=== PATIENT | female | born 1950 | race American Indian/Alaskan Native ===

== ENCOUNTER 2021-12-30 07:03 | Observation (INO) | payer MEDICARE ==
[2021-12-30] MEDS ORDERED: MORPHINE 4 MG/1 ML INJ IV ONE (07:39)
[2021-12-30] MEDS ORDERED: ONDANSETRON 4 MG/2 ML INJ IV ONE (07:39)
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
[2021-12-30 08:25] LABS: Basophils # (Auto) 0.1 K/mm3 (0.0-0.1); Basophils % (Auto) 1.1 % (0.0-1.8); Eosinophils # (Auto) 0.4 K/mm3 (0.0-0.4); Eosinophils % (Auto) 4.2 % (0.0-4.3); Hematocrit 30.2 % (30.3-42.9); Hemoglobin 9.5 gm/dl (10.1-14.3); Lymphocytes # (Auto) 1.8 K/mm3 (1.2-5.4); Lymphocytes % (Auto) 18.7 % (13.4-35.0); Mean Corpuscular HGB Conc 32 % (30-34); Mean Corpuscular Volume 86 fl (79-97); Monocytes # (Auto) 1.2 K/mm3 (0.0-0.8); Monocytes % (Auto) 12.4 % (0.0-7.3); Platelet Count 510 K/mm3 (140-440); Red Blood Count 3.51 M/mm3 (3.65-5.03); Red Cell Distribution Width 19.5 % (13.2-15.2)
[2021-12-30 08:35] LABS: Chol/HDL Ratio 4.44 %
[2021-12-30 08:36] LABS: Alanine Aminotransferase 12 units/L (7-56); Albumin 3.3 g/dL (3.9-5); Blood Urea Nitrogen 82 mg/dL (7-17); Calcium 8.8 mg/dL (8.4-10.2); Hemolysis Index 6
[2021-12-30 08:40] LABS: BUN/Creatinine Ratio 8; Bilirubin,Direct < 0.2 mg/dL (0-0.2)
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
[2021-12-30] MEDS ORDERED: MORPHINE 4 MG/1 ML INJ IM ONE (10:50)
--- NOTE | 2021-12-30 11:29 | XRay Report ---
CHEST 1 VIEW INDICATION: SOB. COMPARISON: 11/24/2017 FINDINGS: Support devices: None. Heart: Mild cardiomegaly Lungs/Pleura: Mild central pulmonary venous congestion is present. There is minor discoid atelectasis adjacent to the right hilum. No evidence for pneumonia, pleural effusion or pneumothorax. Additional findings: None. IMPRESSION: Mild cardiomegaly and pulmonary venous congestion but no CHF Signer Name: Conrad Randall Jr, MD Signed: 12/30/2021 11:24 AM Workstation Name: [id number]
[2021-12-30] MEDS ORDERED: ACETAMINOPHEN 325 MG TAB PO PRN (11:31)
[2021-12-30] MEDS ORDERED: ONDANSETRON 4 MG/2 ML INJ IV PRN (11:31)
--- NOTE | 2021-12-30 12:43 | Electrocardiograph Report ---
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
--- NOTE | 2021-12-30 15:46 | Consultation ---
History of Present Illness - Reason for Consult Consult date: 12/30/21 end stage renal disease - History of Present Illness The patient is a 71 year old female with ESRD on HD every , last HD was Wednesday, presented to the emergency room for worsening abd pain. She did not get her HD yesterday. CT AP was negative for acute process. Renal consult was requested for management of HD while inpatient Past History Past Medical History: ESRD, hypertension Medications and Allergies Allergies Allergy/AdvReac Type Severity Reaction Status Date / Time lisinopril AdvReac Swelling Verified 12/30/21 07:22 Penicillins AdvReac Swelling Verified 12/30/21 07:22 Home Medications Medication Instructions Recorded Confirmed Last Taken Type Gabapentin [Neurontin] 100 mg PO Q8HR 12/30/21 12/30/21 Unknown History labetaloL [Labetalol 200mg TAB] 200 mg PO BID 12/30/21 12/30/21 Unknown History Active Meds: Active Medications Acetaminophen (Acetaminophen 325 Mg Tab) 650 mg PO Q4H PRN PRN Reason: Pain MILD(1-3)/Fever >100.5/SHOEMAKER Morphine Sulfate (Morphine 2 Mg/1 Ml Inj) 2 mg IV Q4H PRN PRN Reason: Pain, Moderate (4-6) Ondansetron HCl (Ondansetron 4 Mg/2 Ml Inj) 4 mg IV Q8H PRN PRN Reason: Nausea And Vomiting Sodium Chloride (Sodium Chloride 0.9% 10 Ml Flush Syringe) 10 ml IV BID KIMO Last Admin: 12/30/21 14:58 Dose: Not Given Sodium Chloride (Sodium Chloride 0.9% 10 Ml Flush Syringe) 10 ml IV PRN PRN PRN Reason: LINE FLUSH Review of Systems All systems: negative (abd pain) Exam - Vital Signs Vital signs: Vital Signs Resp 24 12/30/21 07:50 - General Appearance General appearance: well-developed, well-nourished, appears stated age EENT: ATNC, PERRL, mucous membranes moist Neck: Present: neck supple Respiratory: Decreased Breath Sounds Heart: regular, S1S2 Gastrointestinal: Present: normoactive bowel sounds, tenderness Integumentary: no rash, warm and dry Neurologic: no focal deficit, no asterixis, alert and oriented x3 Musculoskeletal: Present: other (trace pitting edema in BLE) Psychiatric: cooperative Results - Lab Results 12/30/21 07:46 12/30/21 07:46 Most recent lab results Calcium 8.8 mg/dL (8.4-10.2) 12/30/21 07:46 Assessment and Plan End-stage renal disease needing dialysis Acute hyperkalemia Abdominal pain Volume overload Patient is agreeable with HD during this admission HD ordered today for clearance and volume removal via L AVF will assess HD needs daily renally dose meds strict I&O daily weight
[2021-12-30] MEDS: MORPHINE 2 MG/1 ML INJ IV PRN ×2 (16:14→22:25)
[2021-12-31 00:36] LABS: Hepatitis B Surface Antigen Non-Reactive (Negative); Hepatitis C Virus Antibody Non-Reactive (NonReactive)
[2021-12-31] MEDS: MORPHINE 2 MG/1 ML INJ IV PRN ×4 (03:50→20:08)
[2021-12-31 04:27] LABS: Bacteria,Urine 1+ /HPF (Negative); Bilirubin,Urine NEG (Negative); Blood,Urine MOD (Negative); Color,Urine Yellow (Yellow); Urobilinogen,Urine < 2.0 mg/dL (<2.0)
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
[2021-12-31] MEDS ORDERED: hydrALAZINE 20 MG/1 ML INJ IV ONE (20:16)
[2021-12-31 21:40] LABS: Calcium 8.4 mg/dL (8.4-10.2)
[2022-01-01] MEDS: MORPHINE 2 MG/1 ML INJ IV PRN ×4 (05:36→17:10)
[2022-01-01 06:27] LABS: Basophils # (Auto) 0.1 K/mm3 (0.0-0.1); Eosinophils # (Auto) 0.3 K/mm3 (0.0-0.4); Eosinophils % (Auto) 3.7 % (0.0-4.3); Hematocrit 26.3 % (30.3-42.9); Hemoglobin 8.5 gm/dl (10.1-14.3); Lymphocytes # (Auto) 2.4 K/mm3 (1.2-5.4); Lymphocytes % (Auto) 25.9 % (13.4-35.0); Mean Corpuscular HGB Conc 32 % (30-34); Mean Corpuscular Volume 85 fl (79-97); Monocytes # (Auto) 1.3 K/mm3 (0.0-0.8); Monocytes % (Auto) 14.6 % (0.0-7.3); Platelet Count 440 K/mm3 (140-440); Red Blood Count 3.11 M/mm3 (3.65-5.03); Red Cell Distribution Width 19.3 % (13.2-15.2)
[2022-01-01 06:43] LABS: Calcium 8.9 mg/dL (8.4-10.2)
--- NOTE | 2022-01-01 09:20 | Progress Note ---
Assessment and Plan End-stage renal disease needing dialysis Acute hyperkalemia Abdominal pain Volume overload Plan: HD today for clearance and volume removal Fluid restriction of 1 liter per day Renally dose medications Strict I&O's daily Obtain daily weights Assess dialysis needs daily Patient reports recently moving to [facility] to live with her daughter and does not have a dialysis clinic Consulted CM for outpatient HD placement to [facility] Subjective Date of service: 01/01/22 Principal diagnosis: 12/31/2021 Interval history: No overnight events Objective - Vital Signs Vital signs: Vital Signs - 12hr 12/31/21 12/31/21 01/01/22 21:27 23:43 00:31 Temperature 97.1 F L Pulse Rate 75 73 Respiratory 18 Rate Blood Pressure 181/79 153/63 O2 Sat by Pulse 98 Oximetry 01/01/22 01/01/22 04:59 08:09 Temperature 98.1 F 97.4 F L Pulse Rate 72 73 Respiratory 19 16 Rate Blood Pressure 160/79 171/77 O2 Sat by Pulse 93 98 Oximetry - Lab 01/01/22 05:09 01/01/22 05:09 Most recent lab results Calcium 8.9 mg/dL (8.4-10.2) 01/01/22 05:09 Medications & Allergies - Medications Allergies/Adverse Reactions: Allergies lisinopril Adverse Reaction (Verified 01/01/22 07:22) Swelling/Hives Penicillins Adverse Reaction (Verified 01/01/22 07:22) Swelling/Hives Home Medications: Home Medications Medication Instructions Recorded Confirmed Last Taken Type Gabapentin [Neurontin] 100 mg PO Q8HR 12/30/21 12/30/21 Unknown History labetaloL [Labetalol 200mg TAB] 200 mg PO BID 12/30/21 12/30/21 Unknown History Active Medications: Generic Name Dose Route Start Last Admin Trade Name Freq PRN Reason Stop Dose Admin Acetaminophen 650 mg 12/30/21 11:31 Acetaminophen 325 Mg Tab PO Q4H PRN Pain MILD(1-3)/Fever >100.5/SHOEMAKER Morphine Sulfate 2 mg 12/30/21 11:31 01/01/22 05:36 Morphine 2 Mg/1 Ml Inj IV 2 mg Q4H PRN Administration Pain, Moderate (4-6) Ondansetron HCl 4 mg 12/30/21 11:31 12/30/21 22:20 Ondansetron 4 Mg/2 Ml Inj IV 4 mg Q8H PRN Administration Nausea And Vomiting Sodium Chloride 10 ml 12/30/21 12:00 12/31/21 22:01 Sodium Chloride 0.9% 10 Ml Flush Syringe IV 10 ml BID KIMO Administration Sodium Chloride 10 ml 12/30/21 11:31 Sodium Chloride 0.9% 10 Ml Flush Syringe IV PRN PRN LINE FLUSH
[2022-01-01 16:05] VITALS: BP 161/69
[2022-01-01] MEDS ORDERED: CALCIUM GLUCONATE 2,000 MG in SODIUM CHLORIDE 0.9% 100 ML IV ONE (18:44)
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
[2022-01-01] MEDS ORDERED: DOCUSATE SODIUM 100 MG CAP PO SCH (22:00)
== END 2022-01-01 20:11 | disposition home or self-care (01) ==
LOC: ED 07:03 → 4A 11:31 → INTOOBSV 11:31
PROVIDERS: ADMIT Internal Medicine; ATTEND Internal Medicine
DX: E87.5 Hyperkalemia (principal); Z20.822 Contact with and (suspected) exposure to COVID-19; E87.70 Fluid overload, unspecified; I12.0 Hypertensive chronic kidney disease with stage 5 chronic kidney disease or end stage renal disease; N18.6 End stage renal disease; R10.9 Unspecified abdominal pain; Z99.2 Dependence on renal dialysis; Z79.899 Other long term (current) drug therapy; Z98.890 Other specified postprocedural states
CPT/HCPCS: 36415; 71045; 74176; 80048; 80061; 80074; 80076; 81001; 83690; 84484; 85025; 87086; 93005; 96372; 96374; 96375; 96376; 99291; G0378; J0360; J2270; J2405; U0003

== ENCOUNTER 2022-01-09 19:13 | Emergency (ER) | payer MEDICARE ==
[2022-01-09 19:25] VITALS: BP 160/70
== END 2022-01-10 11:36 ==
LOC: ED 19:13
DX: R07.81 Pleurodynia (principal); Z53.21 Procedure and treatment not carried out due to patient leaving prior to being seen by health care provider

== ENCOUNTER 2022-01-23 10:20 | Inpatient (IN) | payer MEDICARE ==
[2022-01-23] MEDS ORDERED: MORPHINE 4 MG/1 ML INJ IV ONE (11:46)
[2022-01-23] MEDS ORDERED: ONDANSETRON 4 MG/2 ML INJ IV ONE (11:46)
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
[2022-01-23 12:40] LABS: Basophils # (Auto) 0.1 K/mm3 (0.0-0.1); Basophils % (Auto) 1.6 % (0.0-1.8); Eosinophils # (Auto) 0.3 K/mm3 (0.0-0.4); Eosinophils % (Auto) 4.3 % (0.0-4.3); Hematocrit 30.5 % (30.3-42.9); Hemoglobin 9.2 gm/dl (10.1-14.3); Lymphocytes # (Auto) 2.1 K/mm3 (1.2-5.4); Lymphocytes % (Auto) 25.3 % (13.4-35.0); Mean Corpuscular HGB Conc 30 % (30-34); Mean Corpuscular Volume 89 fl (79-97); Monocytes # (Auto) 1.1 K/mm3 (0.0-0.8); Monocytes % (Auto) 13.9 % (0.0-7.3); Platelet Count 545 K/mm3 (140-440); Red Blood Count 3.44 M/mm3 (3.65-5.03); Red Cell Distribution Width 19.4 % (13.2-15.2)
[2022-01-23 13:18] LABS: Albumin 3.5 g/dL (3.9-5); Blood Urea Nitrogen 61 mg/dL (7-17); Calcium 9.1 mg/dL (8.4-10.2); Hemolysis Index 0
[2022-01-23 13:23] LABS: BUN/Creatinine Ratio 6
[2022-01-23 13:33] LABS: Alanine Aminotransferase < 5 units/L (7-56)
[2022-01-23] MEDS ORDERED: SODIUM POLYSTYRENE 15 GM/60 ML ORAL LIQD PO ONE (13:51)
[2022-01-23] MEDS ORDERED: DEXTROSE 50% IN WATER (25GM) 50 ML SYRINGE IV ONE (13:52)
[2022-01-23] MEDS ORDERED: INSULIN REGULAR, HUMAN 100 UNITS/1 ML IV ONE (13:52)
[2022-01-23] MEDS ORDERED: CALCIUM GLUCONATE 1,000 MG in SODIUM CHLORIDE 0.9% 100 ML IV ONE (13:53)
[2022-01-23] MEDS ORDERED: MORPHINE 2 MG/1 ML INJ IV ONE (17:21)
--- NOTE | 2022-01-23 17:28 | History and Physical Report ---
History of Present Illness Chief complaint: I am short of breath and I need dialysis History of present illness: 71 YO Female with Obesity, ESRD on HD(M,WF), GERD, OA, Chronic Pain Syndrome presents to ED for evaluation. Patient reports "it is hard to breathe and I need dialysis". Patient states that she has missed her previous 2 dialysis sessions. EMS was notified and the patient was found to be in distress and subsequently transported to [facility] for further care and evaluation of the aforementioned symptoms. The patient was seen and evaluated in the emergency department. All lab and imaging studies reviewed. Patient found to have a blood pressure of 205/101 mmHg which is consistent with hypertensive emergency, End-stage renal disease in need of urgent dialysis, fluid overload, hyperkalemia without EKG changes. Patient admitted to medical floor and initiated on IV antihypertensive therapy. Nephrology team consulted in ED for urgent dialysis. Patient denies fever, chills, chest pain, palpitation, productive cough, skin rash and recent contact, or known exposure to COVID-19. Prior admission on reviewed. All medication listed at time of admission has been reconciled. Advanced care planning conducted in ED. Past History Past Medical History: ESRD, GERD, hypertension Past Surgical History: , Other (Dialysis access) Social history: . denies: smoking, alcohol abuse, prescription drug abuse Family history: diabetes, hypertension Medications and Allergies Allergies Allergy/AdvReac Type Severity Reaction Status Date / Time lisinopril AdvReac Swelling/Hi Verified 01/23/22 10:29 ves Penicillins AdvReac Swelling/Hi Verified 01/23/22 10:29 ves Home Medications Medication Instructions Recorded Confirmed Last Taken Type Gabapentin 100 mg PO Q8HR #90 cap 01/01/22 Unknown Rx Lidocain2.5%/Prilocai2.5% [Emla] 1 applic TP 3XW 01/01/22 01/01/22 Unknown History Lidocaine [Lidocaine Pain Relief] 1 patch TP DAILY 01/01/22 01/01/22 Unknown History NIFEdipine [Nifedipine ER] 60 mg PO BID 30 Days #60 01/01/22 Unknown Rx labetaloL [Labetalol 200mg TAB] 200 mg PO BID #60 01/01/22 Unknown Rx oxyCODONE /ACETAMINOPHEN [Percocet 1 tab PO BID #20 01/01/22 Unknown Rx 5/325] Review of Systems Constitutional: weakness, no weight loss, no weight gain, no fever, no chills Ears, nose, mouth and throat: no ear pain, no tinnitis, no decreased hearing, no nasal congestion Breasts: no change in shape, no swelling, no mass Cardiovascular: no chest pain, no orthopnea, no palpitations Respiratory: shortness of breath, no cough, no cough with sputum, no excessive sputum Gastrointestinal: no abdominal pain, no vomiting, no change in bowel habits, no hematemesis Genitourinary Female: no pelvic pain, no flank pain, no dysuria, no urinary frequency, no urgency Rectal: no bleeding Musculoskeletal: no neck stiffness, no shooting arm pain, no arm numbness/tingling, no shooting leg pain Integumentary: no rash, no wounds Neurological: no head injury, no weakness, no numbness, no syncope Psychiatric: no anxiety, no memory loss, no sleep disturbances Endocrine: no cold intolerance, no excessive thirst, no nocturia, no excessive sweating Hematologic/Lymphatic: no easy bleeding Allergic/Immunologic: no wheezing Exam - Constitutional Vitals: Temp Pulse Resp BP Pulse Ox 98.1 F 77 10 L 192/94 95 01/23/22 10:25 01/23/22 15:31 01/23/22 15:31 01/23/22 15:31 01/23/22 15:31 General appearance: Present: mild distress, obese - EENT Eyes: Present: PERRL ENT: hearing intact, clear oral mucosa - Neck Neck: Present: supple, normal ROM - Respiratory Respiratory effort: normal Respiratory: bilateral: CTA - Cardiovascular Heart Sounds: Present: S1 & S2. Absent: rub, click - Extremities Extremities: pulses symmetrical, No edema Peripheral Pulses: within normal limits - Abdominal General gastrointestinal: Present: soft, non-tender, non-distended, normal bowel sounds Female genitourinary: Present: normal - Integumentary Integumentary: Present: clear, warm, dry - Musculoskeletal Musculoskeletal: gait normal, strength equal bilaterally - Psychiatric Psychiatric: appropriate mood/affect, intact judgment & insight - Neurologic Neurologic: CNII-XII intact, moves all extremities Results - Labs CBC & Chem 7: 01/23/22 11:53 01/23/22 11:53 Labs: Abnormal lab results 01/23/22 01/23/22 Range/Units 11:53 11:53 RBC 3.44 L (3.65-5.03) M/mm3 Hgb 9.2 L (10.1-14.3) gm/dl MCH 27 L (28-32) pg RDW 19.4 H (13.2-15.2) % Plt Count 545 H (140-440) K/mm3 [place] % (Auto) 13.9 H (0.0-7.3) % [place] # (Auto) 1.1 H (0.0-0.8) K/mm3 Potassium 6.7 H* (3.6-5.0) mmol/L Chloride 94.2 L (98-107) mmol/L BUN 61 H (7-17) mg/dL Creatinine 9.5 H (0.6-1.2) mg/dL Glucose 124 H (65-100) mg/dL AST < 5 L (5-40) units/L ALT < 5 L (7-56) units/L Total Protein 8.8 H (6.3-8.2) g/dL Albumin 3.5 L (3.9-5) g/dL Assessment and Plan - Patient Problems (1) Hypertensive emergency Current Visit: Yes Status: Acute (2) End stage renal disease on dialysis Current Visit: Yes Status: Acute Plan to address problem: Monitor blood pressure every shift, IV hydralazine every 6 hours as needed for systolic blood pressure greater than or equal to 155 mmHg, supportive care, blood pressure control. (3) Noncompliance Current Visit: Yes Status: Acute Plan to address problem: Patient counseled regarding noncompliance. Patient acknowledges understanding instructions. (4) Acute hyperkalemia Current Visit: No Status: Acute Plan to address problem: No EKG changes, urgent dialysis. (5) Volume overload Current Visit: No Status: Acute Qualifiers: Hypervolemia type: unspecified Qualified Code(s): E87.70 - Fluid overload, unspecified Plan to address problem: Urgent dialysis, strict I/O, monitor urine output every shift, monitor fluid balance (6) DVT prophylaxis Current Visit: No Status: Acute Plan to address problem: SCD to bilateral lower extremities while in bed (7) Advance care planning Current Visit: No Status: Acute Plan to address problem: Disease education data, care plan discussed, diagnoses discussed, prognosis discussed, patient is full code. Patient acknowledges understanding agree with care plan, +30 minutes. (8) Preventative health care Current Visit: Yes Status: Acute Plan to address problem: Patient counseled regarding noncompliance with dialysis and medication. Patient counseled regarding risk factor reduction. Patient counseled regarding meal planning and compliance with low-sodium diet. Patient instructed to follow-up with primary care physician for all age and risk factor appropriate screening test. +30 minutes.
[2022-01-23] MEDS ORDERED: ACETAMINOPHEN 325 MG TAB PO PRN (17:33)
[2022-01-23] MEDS ORDERED: ALBUTEROL 2.5 MG/3 ML NEBU IH PRN (17:33)
--- NOTE | 2022-01-23 18:17 | Cat Scan Report ---
CT ABDOMEN AND PELVIS WITHOUT CONTRAST INDICATION / CLINICAL INFORMATION: flank pain. Bilateral flank pain. TECHNIQUE: Axial CT images were obtained through the abdomen and pelvis without IV contrast. All CT scans at this location are performed using CT dose reduction for ALARA by means of automated exposure control. COMPARISON: CT dated 12/30/21 FINDINGS: LOWER CHEST: Small right pleural effusion is unchanged. Left pleural effusion has improved. LIVER: No significant abnormality. GALLBLADDER: Mildly distended without acute abnormality. No change. BILE DUCTS: No significant abnormality. PANCREAS: No significant abnormality. SPLEEN: No significant abnormality. ADRENALS: No significant abnormality. RIGHT KIDNEY / URETER: No significant abnormality. LEFT KIDNEY / URETER: No significant abnormality. STOMACH / SMALL BOWEL: Small sliding-type hiatal hernia is unchanged. Fluid-filled, nondilated small bowel. COLON: Fluid-filled, nondilated colon. APPENDIX: No significant abnormality. PERITONEUM: No free fluid. No free air. No fluid collection. LYMPH NODES: No significant adenopathy. AORTA / ARTERIES: No significant abnormality. IVC / VEINS: No significant abnormality. URINARY BLADDER: No significant abnormality. REPRODUCTIVE ORGANS: Uterus is absent. No significant adnexal abnormality. ADDITIONAL FINDINGS: None. SKELETAL SYSTEM: No significant abnormality. IMPRESSION: 1. No urinary tract stones or hydronephrosis. 2. Fluid-filled, nondilated small bowel and colon which can be seen in the clinical setting of enteri tis. 3. Interval improvement in small left pleural effusion. Signer Name: Vito Vargas MD Signed: 01/23/2022 6:12 PM Workstation Name: [id number]
[2022-01-23] MEDS: GABAPENTIN 100 MG CAP PO SCH (21:59)
[2022-01-23] MEDS: NIFEdipine XL 60 MG TAB PO SCH (22:19)
[2022-01-23] MEDS: HYDROmorphone 0.5 MG/0.5 ML INJ IV PRN (23:30)
[2022-01-23] MEDS: ONDANSETRON 4 MG/2 ML INJ IV PRN (23:30)
[2022-01-24] MEDS: HYDROmorphone 0.5 MG/0.5 ML INJ IV PRN ×4 (03:14→15:28)
[2022-01-24 05:45] LABS: Calcium 8.7 mg/dL (8.4-10.2)
[2022-01-24] MEDS: GABAPENTIN 100 MG CAP PO SCH ×3 (05:46→21:30)
--- NOTE | 2022-01-24 08:17 | Consultation ---
History of Present Illness - Reason for Consult Consult date: 01/24/22 end stage renal disease - History of Present Illness The patient is a 71 year old female with ESRD on HD, she was admitted yesterday for abd pain she was found to have to have HTN urgency with hyperkalemia after she missed the last 2 HD treatments. she received HD yesterday for clearance and gentle voluem overload which was tolerated well. Renal consult was requested for HD management while inpatient Past History Past Medical History: ESRD, GERD, hypertension Past Surgical History: , Other (Dialysis access) Social history: . denies: smoking, alcohol abuse, prescription drug abuse Family history: diabetes, hypertension Medications and Allergies Allergies Allergy/AdvReac Type Severity Reaction Status Date / Time lisinopril AdvReac Swelling/Hi Verified 01/23/22 10:29 ves Penicillins AdvReac Swelling/Hi Verified 01/23/22 10:29 ves Home Medications Medication Instructions Recorded Confirmed Last Taken Type Gabapentin 100 mg PO Q8HR #90 cap 01/01/22 Unknown Rx Lidocain2.5%/Prilocai2.5% [Emla] 1 applic TP 3XW 01/01/22 01/01/22 Unknown History Lidocaine [Lidocaine Pain Relief] 1 patch TP DAILY 01/01/22 01/01/22 Unknown History NIFEdipine [Nifedipine ER] 60 mg PO BID 30 Days #60 01/01/22 Unknown Rx labetaloL [Labetalol 200mg TAB] 200 mg PO BID #60 01/01/22 Unknown Rx oxyCODONE /ACETAMINOPHEN [Percocet 1 tab PO BID #20 01/01/22 Unknown Rx 5/325] Active Meds: Active Medications Acetaminophen (Acetaminophen 325 Mg Tab) 650 mg PO Q4H PRN PRN Reason: Pain MILD(1-3)/Fever >100.5/SHOEMAKER Albuterol (Albuterol 2.5 Mg/3 Ml Nebu) 2.5 mg IH Q4HRT PRN PRN Reason: Shortness Of Breath Gabapentin (Gabapentin 100 Mg Cap) 100 mg PO Q8HR KIMO Last Admin: 01/24/22 05:46 Dose: 100 mg Hydromorphone HCl (Hydromorphone 0.5 Mg/0.5 Ml Inj) 0.5 mg IV Q3H PRN PRN Reason: Pain , Severe (7-10) Last Admin: 01/24/22 05:46 Dose: 0.5 mg Labetalol HCl (Labetalol 200 Mg Tab) 200 mg PO BID [facility] Last Admin: 01/23/22 22:19 Dose: 200 mg Nifedipine (Nifedipine Xl 60 Mg Tab) 60 mg PO BID [facility] Last Admin: 01/23/22 22:19 Dose: 60 mg Ondansetron HCl (Ondansetron 4 Mg/2 Ml Inj) 4 mg IV Q8H PRN PRN Reason: Nausea And Vomiting Last Admin: 01/23/22 23:30 Dose: 4 mg Oxycodone/Acetaminophen (Oxycodone /Acetaminophen 5-325mg Tab) 1 tab PO Q6H PRN PRN Reason: Pain, Moderate (4-6) Sodium Chloride (Sodium Chloride 0.9% 10 Ml Flush Syringe) 10 ml IV BID [facility] Last Admin: 01/23/22 21:59 Dose: 10 ml Sodium Chloride (Sodium Chloride 0.9% 10 Ml Flush Syringe) 10 ml IV PRN PRN PRN Reason: LINE FLUSH Review of Systems All systems: negative (BL flank pain) Exam - Vital Signs Vital signs: Vital Signs Pulse Ox 87 01/23/22 07:02 Results - Lab Results 01/23/22 11:53 01/24/22 04:42 Most recent lab results Calcium 8.7 mg/dL (8.4-10.2) 01/24/22 04:42 Assessment and Plan (1) Hypertensive emergency (2) End stage renal disease on dialysis (3) Noncompliance (4) Acute hyperkalemia (5) Volume overload s/p STAT HD yesterday, hyperkalemia has resolved HD again today for clearance and volume removal, patijoni t is agreeable with HD while inpatient will assess HD needs daily daily renally dose meds strict I&O
[2022-01-24] MEDS: NIFEdipine XL 60 MG TAB PO SCH ×2 (09:10→21:30)
--- NOTE | 2022-01-24 11:38 | Progress Note ---
Assessment and Plan Assessment and plan: The patient is a 71 year old female with ESRD on HD, she was admitted on 01/20/2022 for abd pain. She was found to have to have HTN urgency with hyperkalemia after she missed the last 2 HD treatments [employer]. She received HD shortly after admission for clearance and gentle volume overload which was tolerated well. Renal consult was requested for HD management while inpatient. Accelerated hypertension ESRD with missed HD Medical noncompliance Hyperkalemia Volume overload 01/24/2022. Patient's blood pressure is normotensive and much better controlled. We will continue hemodialysis per nephrology recommendations. Volume overload has resolved. Patient will be counseled on the importance of medical compliance prior to discharge. Anticipate discharge in a.m. History Interval history: No new issues overnight Hospitalist Physical - Constitutional Vitals: Temp Pulse Resp BP Pulse Ox 98.3 F 66 16 122/54 97 01/24/22 04:33 01/23/22 23:07 01/24/22 04:33 01/24/22 04:33 01/24/22 06:51 General appearance: Present: no acute distress, obese - EENT Eyes: Present: PERRL, EOM intact ENT: hearing intact, clear oral mucosa, dentition normal - Neck Neck: Present: supple, normal ROM - Respiratory Respiratory effort: normal Respiratory: bilateral: CTA - Cardiovascular Rhythm: regular Heart Sounds: Present: S1 & S2. Absent: gallop, rub - Extremities Extremities: no ischemia, No edema, Full ROM - Abdominal General gastrointestinal: soft, non-tender, non-distended, normal bowel sounds - Integumentary Integumentary: Present: clear, warm, dry - Neurologic Neurologic: CNII-XII intact, moves all extremities Results - Labs CBC & Chem 7: 01/23/22 11:53 01/24/22 04:42 Labs: Laboratory Last Values WBC 8.2 K/mm3 (4.5-11.0) 01/23/22 11:53 RBC 3.44 M/mm3 (3.65-5.03) L 01/23/22 11:53 Hgb 9.2 gm/dl (10.1-14.3) L 01/23/22 11:53 Hct 30.5 % (30.3-42.9) 01/23/22 11:53 MCV 89 fl (79-97) 01/23/22 11:53 MCH 27 pg (28-32) L 01/23/22 11:53 MCHC 30 % (30-34) 01/23/22 11:53 RDW 19.4 % (13.2-15.2) H 01/23/22 11:53 Plt Count 545 K/mm3 (140-440) H 01/23/22 11:53 Lymph % (Auto) 25.3 % (13.4-35.0) 01/23/22 11:53 [place] % (Auto) 13.9 % (0.0-7.3) H 01/23/22 11:53 Eos % (Auto) 4.3 % (0.0-4.3) 01/23/22 11:53 Baso % (Auto) 1.6 % (0.0-1.8) 01/23/22 11:53 Lymph # (Auto) 2.1 K/mm3 (1.2-5.4) 01/23/22 11:53 [place] # (Auto) 1.1 K/mm3 (0.0-0.8) H 01/23/22 11:53 Eos # (Auto) 0.3 K/mm3 (0.0-0.4) 01/23/22 11:53 Baso # (Auto) 0.1 K/mm3 (0.0-0.1) 01/23/22 11:53 Seg Neutrophils % 54.9 % (40.0-70.0) 01/23/22 11:53 Seg Neutrophils # 4.5 K/mm3 (1.8-7.7) 01/23/22 11:53 Sodium 143 mmol/L (137-145) 01/24/22 04:42 Potassium 3.6 mmol/L (3.6-5.0) D 01/24/22 04:42 Chloride 98.9 mmol/L (98-107) 01/24/22 04:42 Carbon Dioxide 28 mmol/L (22-30) 01/24/22 04:42 Anion Gap 20 mmol/L 01/24/22 04:42 BUN 36 mg/dL (7-17) H 01/24/22 04:42 Creatinine 7.0 mg/dL (0.6-1.2) H 01/24/22 04:42 Estimated GFR 7 ml/min 01/24/22 04:42 BUN/Creatinine Ratio 5 % 01/24/22 04:42 Glucose 124 mg/dL (65-100) H 01/24/22 04:42 Calcium 8.7 mg/dL (8.4-10.2) 01/24/22 04:42 Total Bilirubin 0.40 mg/dL (0.1-1.2) 01/23/22 11:53 AST < 5 units/L (5-40) L 01/23/22 11:53 ALT < 5 units/L (7-56) L 01/23/22 11:53 Alkaline Phosphatase 107 units/L (35-129) 01/23/22 11:53 Total Protein 8.8 g/dL (6.3-8.2) H 01/23/22 11:53 Albumin 3.5 g/dL (3.9-5) L 01/23/22 11:53 Albumin/Globulin Ratio 0.7 % 01/23/22 11:53 Brown/IV: Voiding Method Incontinent Active Medications - Current Medications Current Medications: Generic Name Dose Route Start Last Admin Trade Name Freq PRN Reason Stop Dose Admin Acetaminophen 650 mg 01/23/22 17:33 Acetaminophen 325 Mg Tab PO Q4H PRN Pain MILD(1-3)/Fever >100.5/SHOEMAKER Albuterol 2.5 mg 01/23/22 17:33 Albuterol 2.5 Mg/3 Ml Nebu IH Q4HRT PRN Shortness Of Breath Gabapentin 100 mg 01/23/22 22:00 01/24/22 05:46 Gabapentin 100 Mg Cap PO 100 mg Q8HR KIMO Administration Hydromorphone HCl 0.5 mg 01/23/22 17:33 01/24/22 10:38 Hydromorphone 0.5 Mg/0.5 Ml Inj IV 0.5 mg Q3H PRN Administration Pain , Severe (7-10) Labetalol HCl 200 mg 01/23/22 22:00 01/24/22 09:12 Labetalol 200 Mg Tab PO 200 mg BID KIMO Administration Nifedipine 60 mg 01/23/22 22:00 01/24/22 09:10 Nifedipine Xl 60 Mg Tab PO 60 mg BID KIMO Administration Ondansetron HCl 4 mg 01/23/22 17:33 01/23/22 23:30 Ondansetron 4 Mg/2 Ml Inj IV 4 mg Q8H PRN Administration Nausea And Vomiting Oxycodone/Acetaminophen 1 tab 01/23/22 17:33 Oxycodone /Acetaminophen 5-325mg Tab PO Q6H PRN Pain, Moderate (4-6) Sodium Chloride 10 ml 01/23/22 22:00 01/24/22 09:10 Sodium Chloride 0.9% 10 Ml Flush Syringe IV 10 ml BID KIMO Administration Sodium Chloride 10 ml 01/23/22 17:33 Sodium Chloride 0.9% 10 Ml Flush Syringe IV PRN PRN LINE FLUSH
[2022-01-24 12:35] LABS: Hepatitis B Surface Antigen Non-Reactive (Negative); Hepatitis C Virus Antibody Non-Reactive (NonReactive)
[2022-01-24] MEDS: oxyCODONE /ACETAMINOPHEN 5-325MG TAB PO PRN (21:53)
[2022-01-25] MEDS: GABAPENTIN 100 MG CAP PO SCH ×3 (05:43→21:45)
[2022-01-25] MEDS: HYDROmorphone 0.5 MG/0.5 ML INJ IV PRN ×2 (09:26→13:29)
[2022-01-25] MEDS: NIFEdipine XL 60 MG TAB PO SCH ×2 (09:26→21:47)
--- NOTE | 2022-01-25 09:46 | Progress Note ---
Assessment and Plan (1) Hypertensive emergency (2) End stage renal disease on dialysis (3) Noncompliance (4) Acute hyperkalemia (5) Volume overload no indication for HD today, will assess dialysis needs daily will assess HD needs daily daily renally dose meds strict I&O Subjective Date of service: 01/25/22 Principal diagnosis: ESRD Interval history: HD was tolerated well yesterday Objective - Vital Signs Vital signs: Vital Signs - 12hr 01/25/22 01/25/22 04:54 09:08 Temperature 98.6 F Pulse Rate 71 Respiratory 18 Rate Blood Pressure 91/32 O2 Sat by Pulse 98 94 Oximetry - Lab 01/23/22 11:53 01/24/22 04:42 Most recent lab results Calcium 8.7 mg/dL (8.4-10.2) 01/24/22 04:42 Medications & Allergies - Medications Allergies/Adverse Reactions: Allergies lisinopril Adverse Reaction (Verified 01/23/22 10:29) Swelling/Hives Penicillins Adverse Reaction (Verified 01/23/22 10:29) Swelling/Hives Home Medications: Home Medications Medication Instructions Recorded Confirmed Last Taken Type Gabapentin 100 mg PO Q8HR #90 cap 01/01/22 01/25/22 Unknown Rx Lidocain2.5%/Prilocai2.5% [Emla] 1 applic TP 3XW 01/01/22 01/25/22 Unknown History Lidocaine [Lidocaine Pain Relief] 1 patch TP DAILY 01/01/22 01/25/22 Unknown History NIFEdipine [Nifedipine ER] 60 mg PO BID 30 Days #60 01/01/22 01/25/22 Unknown Rx labetaloL [Labetalol 200mg TAB] 200 mg PO BID #60 01/01/22 01/25/22 Unknown Rx oxyCODONE /ACETAMINOPHEN [Percocet 1 tab PO BID #20 01/01/22 01/25/22 Unknown Rx 5/325] Active Medications: Generic Name Dose Route Start Last Admin Trade Name Freq PRN Reason Stop Dose Admin Acetaminophen 650 mg 01/23/22 17:33 Acetaminophen 325 Mg Tab PO Q4H PRN Pain MILD(1-3)/Fever >100.5/SHOEMAKER Albuterol 2.5 mg 01/23/22 17:33 Albuterol 2.5 Mg/3 Ml Nebu IH Q4HRT PRN Shortness Of Breath Gabapentin 100 mg 06/10/22 22:00 01/25/22 05:43 Gabapentin 100 Mg Cap PO 100 mg Q8HR KIMO Administration Hydromorphone HCl 0.5 mg 01/23/22 17:33 01/25/22 09:26 Hydromorphone 0.5 Mg/0.5 Ml Inj IV 0.5 mg Q3H PRN Administration Pain , Severe (7-10) Labetalol HCl 200 mg 01/23/22 22:00 01/24/22 21:31 Labetalol 200 Mg Tab PO Not Given BID KIMO Nifedipine 60 mg 01/23/22 22:00 01/25/22 09:26 Nifedipine Xl 60 Mg Tab PO 60 mg BID KIMO Administration Ondansetron HCl 4 mg 01/23/22 17:33 01/23/22 23:30 Ondansetron 4 Mg/2 Ml Inj IV 4 mg Q8H PRN Administration Nausea And Vomiting Oxycodone/Acetaminophen 1 tab 01/23/22 17:33 01/24/22 21:53 Oxycodone /Acetaminophen 5-325mg Tab PO 1 tab Q6H PRN Administration Pain, Moderate (4-6) Sodium Chloride 10 ml 01/23/22 22:00 01/24/22 21:30 Sodium Chloride 0.9% 10 Ml Flush Syringe IV 10 ml BID KIMO Administration Sodium Chloride 10 ml 01/23/22 17:33 Sodium Chloride 0.9% 10 Ml Flush Syringe IV PRN PRN LINE FLUSH
[2022-01-25] MEDS: oxyCODONE /ACETAMINOPHEN 5-325MG TAB PO PRN ×2 (10:23→17:39)
--- NOTE | 2022-01-25 21:25 | Electrocardiograph Report ---
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
[2022-01-26] MEDS: GABAPENTIN 100 MG CAP PO SCH ×3 (05:35→22:05)
[2022-01-26] MEDS: oxyCODONE /ACETAMINOPHEN 5-325MG TAB PO PRN ×2 (05:37→14:50)
[2022-01-26] MEDS: NIFEdipine XL 60 MG TAB PO SCH ×2 (09:36→22:05)
--- NOTE | 2022-01-26 09:51 | Progress Note ---
Assessment and Plan Assessment and plan: The patient is a 71 year old female with ESRD on HD, she was admitted on 01/20/2022 for abd pain. 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 She received HD shortly after admission for clearance and gentle volume overload which was tolerated well. Renal consult was requested for HD management while inpatient. Accelerated hypertension ESRD with missed HD Low back pain Medical noncompliance Hyperkalemia Volume overload 01/24/2022. Patient's blood pressure is normotensive and much better controlled. We will continue hemodialysis per nephrology recommendations. Volume overload has resolved. Patient will be counseled on the importance of medical compliance prior to discharge. Anticipate discharge in a.m. 01/25/2022. Patient reports severe low back pain with inability to ambulate. Await MRI lumbar spine. Continue hemodialysis per nephrology recommendations 01/26/2022. Await MRI for low back pain. I discussed the case with the daughter yesterday who reports patient is unable to ambulate due to low back pain. Patient was unable to go to hemodialysis because of the back pain. Continue hemodialysis per nephrology recommendations. History Interval history: No new issues overnight Hospitalist Physical - Constitutional Vitals: Temp Pulse Resp BP Pulse Ox 98.1 F 73 18 131/69 93 01/26/22 04:35 01/26/22 04:35 01/26/22 06:37 01/26/22 04:35 01/26/22 09:17 General appearance: Present: no acute distress, obese - EENT Eyes: Present: PERRL, EOM intact ENT: hearing intact, clear oral mucosa, dentition normal - Neck Neck: Present: supple, normal ROM - Respiratory Respiratory effort: normal Respiratory: bilateral: CTA - Cardiovascular Rhythm: regular Heart Sounds: Present: S1 & S2. Absent: gallop, rub - Extremities Extremities: no ischemia, No edema, Full ROM - Abdominal General gastrointestinal: soft, non-tender, non-distended, normal bowel sounds - Integumentary Integumentary: Present: clear, warm, dry - Neurologic Neurologic: CNII-XII intact, moves all extremities Results - Labs CBC & Chem 7: 01/23/22 11:53 01/24/22 04:42 Labs: Laboratory Last Values WBC 8.2 K/mm3 (4.5-11.0) 01/23/22 11:53 RBC 3.44 M/mm3 (3.65-5.03) L 01/23/22 11:53 Hgb 9.2 gm/dl (10.1-14.3) L 01/23/22 11:53 Hct 30.5 % (30.3-42.9) 01/23/22 11:53 MCV 89 fl (79-97) 01/23/22 11:53 MCH 27 pg (28-32) L 01/23/22 11:53 MCHC 30 % (30-34) 01/23/22 11:53 RDW 19.4 % (13.2-15.2) H 01/23/22 11:53 Plt Count 545 K/mm3 (140-440) H 01/23/22 11:53 Lymph % (Auto) 25.3 % (13.4-35.0) 01/23/22 11:53 [place] % (Auto) 13.9 % (0.0-7.3) H 01/23/22 11:53 Eos % (Auto) 4.3 % (0.0-4.3) 01/23/22 11:53 Baso % (Auto) 1.6 % (0.0-1.8) 01/23/22 11:53 Lymph # (Auto) 2.1 K/mm3 (1.2-5.4) 01/23/22 11:53 [place] # (Auto) 1.1 K/mm3 (0.0-0.8) H 01/23/22 11:53 Eos # (Auto) 0.3 K/mm3 (0.0-0.4) 01/23/22 11:53 Baso # (Auto) 0.1 K/mm3 (0.0-0.1) 01/23/22 11:53 Seg Neutrophils % 54.9 % (40.0-70.0) 01/23/22 11:53 Seg Neutrophils # 4.5 K/mm3 (1.8-7.7) 01/23/22 11:53 Sodium 143 mmol/L (137-145) 01/24/22 04:42 Potassium 3.6 mmol/L (3.6-5.0) D 01/24/22 04:42 Chloride 98.9 mmol/L (98-107) 01/24/22 04:42 Carbon Dioxide 28 mmol/L (22-30) 01/24/22 04:42 Anion Gap 20 mmol/L 01/24/22 04:42 BUN 36 mg/dL (7-17) H 01/24/22 04:42 Creatinine 7.0 mg/dL (0.6-1.2) H 01/24/22 04:42 Estimated GFR 7 ml/min 01/24/22 04:42 BUN/Creatinine Ratio 5 % 01/24/22 04:42 Glucose 124 mg/dL (65-100) H 01/24/22 04:42 Calcium 8.7 mg/dL (8.4-10.2) 01/24/22 04:42 Total Bilirubin 0.40 mg/dL (0.1-1.2) 01/23/22 11:53 AST < 5 units/L (5-40) L 01/23/22 11:53 ALT < 5 units/L (7-56) L 01/23/22 11:53 Alkaline Phosphatase 107 units/L (35-129) 01/23/22 11:53 Total Protein 8.8 g/dL (6.3-8.2) H 01/23/22 11:53 Albumin 3.5 g/dL (3.9-5) L 01/23/22 11:53 Albumin/Globulin Ratio 0.7 % 01/23/22 11:53 Hepatitis A IgM Ab Non-reactive (NonReactive) 01/24/22 11:39 Hep Bs Antigen Non-reactive (Negative) 01/24/22 11:39 Hep B Core IgM Ab Non-reactive (NonReactive) 01/24/22 11:39 Hepatitis C Antibody Non-reactive (NonReactive) 01/24/22 11:39 Brown/IV: Voiding Method Bedpan Active Medications - Current Medications Current Medications: Generic Name Dose Route Start Last Admin Trade Name Freq PRN Reason Stop Dose Admin Acetaminophen 650 mg 01/23/22 17:33 Acetaminophen 325 Mg Tab PO Q4H PRN Pain MILD(1-3)/Fever >100.5/SHOEMAKER Albuterol 2.5 mg 01/23/22 17:33 Albuterol 2.5 Mg/3 Ml Nebu IH Q4HRT PRN Shortness Of Breath Gabapentin 100 mg 01/23/22 22:00 01/26/22 05:35 Gabapentin 100 Mg Cap PO 100 mg Q8HR KIMO Administration Hydromorphone HCl 0.5 mg 01/23/22 17:33 01/25/22 13:29 Hydromorphone 0.5 Mg/0.5 Ml Inj IV 0.5 mg Q3H PRN Administration Pain , Severe (7-10) Labetalol HCl 200 mg 01/23/22 22:00 01/25/22 21:51 Labetalol 200 Mg Tab PO Not Given BID KIMO Nifedipine 60 mg 01/23/22 22:00 01/26/22 09:36 Nifedipine Xl 60 Mg Tab PO 60 mg BID KIMO Administration Ondansetron HCl 4 mg 01/23/22 17:33 01/23/22 23:30 Ondansetron 4 Mg/2 Ml Inj IV 4 mg Q8H PRN Administration Nausea And Vomiting Oxycodone/Acetaminophen 1 tab 01/23/22 17:33 01/26/22 05:37 Oxycodone /Acetaminophen 5-325mg Tab PO 1 tab Q6H PRN Administration Pain, Moderate (4-6) Sodium Chloride 10 ml 01/23/22 22:00 01/26/22 09:36 Sodium Chloride 0.9% 10 Ml Flush Syringe IV 10 ml BID KIMO Administration Sodium Chloride 10 ml 01/23/22 17:33 Sodium Chloride 0.9% 10 Ml Flush Syringe IV PRN PRN LINE FLUSH
--- NOTE | 2022-01-26 09:52 | Progress Note ---
Assessment and Plan Assessment: Hypertensive emergency End stage renal disease on dialysis Noncompliance Acute hyperkalemia Volume overload Plan: Hemodialysis today for UF and clearance Fluid restriction of 1 liter per day Renally dose medications Strict I&O's Obtain daily weights Assess dialysis needs daily Case management arranging SNF placement for patient Consult case management for outpatient HD placement to [facility] Plan of care reviewed by Dr. Mon Subjective Date of service: 01/26/22 Principal diagnosis: ESRD Interval history: Patient off floor in MRI Objective - Vital Signs Vital signs: Vital Signs - 12hr 01/26/22 01/26/22 01/26/22 04:35 06:37 09:17 Temperature 98.1 F Pulse Rate 73 Respiratory 20 18 Rate Blood Pressure 131/69 [Left] O2 Sat by Pulse 98 93 Oximetry - Lab 01/23/22 11:53 01/24/22 04:42 Most recent lab results Calcium 8.7 mg/dL (8.4-10.2) 01/24/22 04:42 Medications & Allergies - Medications Allergies/Adverse Reactions: Allergies lisinopril Adverse Reaction (Verified 01/23/22 10:29) Swelling/Hives Penicillins Adverse Reaction (Verified 01/23/22 10:29) Swelling/Hives Home Medications: Home Medications Medication Instructions Recorded Confirmed Last Taken Type Gabapentin 100 mg PO Q8HR #90 cap 01/01/22 01/25/22 Unknown Rx Lidocain2.5%/Prilocai2.5% [Emla] 1 applic TP 3XW 01/01/22 01/25/22 Unknown History Lidocaine [Lidocaine Pain Relief] 1 patch TP DAILY 01/01/22 01/25/22 Unknown History NIFEdipine [Nifedipine ER] 60 mg PO BID 30 Days #60 01/01/22 01/25/22 Unknown Rx labetaloL [Labetalol 200mg TAB] 200 mg PO BID #60 01/01/22 01/25/22 Unknown Rx oxyCODONE /ACETAMINOPHEN [Percocet 1 tab PO BID #20 01/01/22 01/25/22 Unknown Rx 5/325] Active Medications: Generic Name Dose Route Start Last Admin Trade Name Freq PRN Reason Stop Dose Admin Acetaminophen 650 mg 01/23/22 17:33 Acetaminophen 325 Mg Tab PO Q4H PRN Pain MILD(1-3)/Fever >100.5/SHOEMAKER Albuterol 2.5 mg 01/23/22 17:33 Albuterol 2.5 Mg/3 Ml Nebu IH Q4HRT PRN Shortness Of Breath Gabapentin 100 mg 01/23/22 22:00 01/26/22 05:35 Gabapentin 100 Mg Cap PO 100 mg Q8HR KIMO Administration Hydromorphone HCl 0.5 mg 01/23/22 17:33 01/25/22 13:29 Hydromorphone 0.5 Mg/0.5 Ml Inj IV 0.5 mg Q3H PRN Administration Pain , Severe (7-10) Labetalol HCl 200 mg 01/23/22 22:00 01/25/22 21:51 Labetalol 200 Mg Tab PO Not Given BID KIMO Nifedipine 60 mg 01/23/22 22:00 01/26/22 09:36 Nifedipine Xl 60 Mg Tab PO 60 mg BID KIMO Administration Ondansetron HCl 4 mg 01/23/22 17:33 01/23/22 23:30 Ondansetron 4 Mg/2 Ml Inj IV 4 mg Q8H PRN Administration Nausea And Vomiting Oxycodone/Acetaminophen 1 tab 01/23/22 17:33 01/26/22 05:37 Oxycodone /Acetaminophen 5-325mg Tab PO 1 tab Q6H PRN Administration Pain, Moderate (4-6) Sodium Chloride 10 ml 01/23/22 22:00 01/26/22 09:36 Sodium Chloride 0.9% 10 Ml Flush Syringe IV 10 ml BID KIMO Administration Sodium Chloride 10 ml 01/23/22 17:33 Sodium Chloride 0.9% 10 Ml Flush Syringe IV PRN PRN LINE FLUSH
--- NOTE | 2022-01-26 16:42 | Magnetic Resonance Report ---
MR lumbar spine wo con INDICATION / CLINICAL INFORMATION: 71 years Female; Low back pain. TECHNIQUE: Multisequence, multiplanar images of the lumbar spine were obtained. COMPARISON: None available. FINDINGS: ALIGNMENT: There appears be minimal anterolisthesis at L3-4 and L4-L5. There is no significant lumbar scoliosis. VERTEBRAE:There are are multilevel focal endplate changes anteriorly involving the lumbar segments wi thout significant edema. VISUALIZED SPINAL CORD: The motion degrades image quality. However, the distal spinal cord appears to demonstrate appropriate signal intensity and terminates at L1-2. [id number]-ZU-ECOFY ANALYSIS: L1-2: No significant abnormality. L2-3: No significant abnormality. L3-4: The broad-based disc bulge minimally flattens the ventral thecal sac at. There is mild left for aminal narrowing L4-5: The broad-based disc bulge and ligamentum flavum hypertrophy mildly flatten the thecal sac. The re is mild foraminal narrowing bilaterally. L5-S1: There is a slight disc bulge without ossific and central spinal stenosis. The facet joint hype rtrophy contributes to mild foraminal narrowing, greater on the left. PARASPINAL SOFT TISSUES: Multiple stones are identified within the visualized gallbladder. There is n o clear evidence of significant thickening involving the visualized gallbladder wall. ADDITIONAL FINDINGS: No epidural collections are identified. IMPRESSION: 1. There are multilevel degenerative changes and disc bulges involving the lumbar spine as detailed a susana. Signer Name: Carter Augustin MD Signed: 01/26/2022 4:38 PM Workstation Name: [id number]
[2022-01-26] MEDS: ONDANSETRON 4 MG/2 ML INJ IV PRN (20:29)
[2022-01-27] MEDS: GABAPENTIN 100 MG CAP PO SCH ×3 (05:40→21:39)
[2022-01-27 06:59] LABS: Basophils # (Auto) 0.1 K/mm3 (0.0-0.1); Basophils % (Auto) 1.1 % (0.0-1.8); Eosinophils # (Auto) 0.3 K/mm3 (0.0-0.4); Eosinophils % (Auto) 4.7 % (0.0-4.3); Hematocrit 28.6 % (30.3-42.9); Hemoglobin 8.9 gm/dl (10.1-14.3); Lymphocytes # (Auto) 1.7 K/mm3 (1.2-5.4); Lymphocytes % (Auto) 26.6 % (13.4-35.0); Mean Corpuscular HGB Conc 31 % (30-34); Mean Corpuscular Volume 88 fl (79-97); Monocytes # (Auto) 0.9 K/mm3 (0.0-0.8); Monocytes % (Auto) 14.4 % (0.0-7.3); Platelet Count 389 K/mm3 (140-440); Red Blood Count 3.24 M/mm3 (3.65-5.03); Red Cell Distribution Width 18.6 % (13.2-15.2)
[2022-01-27 07:14] LABS: Calcium 8.4 mg/dL (8.4-10.2)
[2022-01-27] MEDS: NIFEdipine XL 60 MG TAB PO SCH ×3 (08:51→21:39)
[2022-01-27] MEDS: oxyCODONE /ACETAMINOPHEN 5-325MG TAB PO PRN (08:52)
--- NOTE | 2022-01-27 10:58 | Progress Note ---
Assessment and Plan Assessment: Hypertensive emergency End stage renal disease on dialysis Noncompliance Acute hyperkalemia Volume overload Anemia Plan: S/P hemodialysis yesterday for UF and clearance Anemia- Epogen 20,000 units with HD Fluid restriction of 1 liter per day Renally dose medications Strict I&O's daily Obtain daily weights Assess dialysis needs daily Case management arranging SNF placement for patient Consult case management for outpatient HD placement to [facility] Plan of care reviewed by Dr. Mon Subjective Date of service: 01/27/22 Principal diagnosis: ESRD Interval history: Patient seen lying in bed. Son at bedside states patient suffers from acid ref lux and needs medication for it. 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 Notified patient's nurse of sons request to let Attending be aware. Patient complains of chronic back pain. Objective - Vital Signs Vital signs: Vital Signs - 12hr 01/27/22 01/27/22 01/27/22 03:43 09:42 10:00 Temperature 97.9 F 98.0 F Pulse Rate 63 Respiratory 16 20 Rate Blood Pressure 129/60 98/47 O2 Sat by Pulse 100 96 Oximetry - General Appearance General appearance: well-developed, appears stated age, fatigue EENT: ATNC, PERRL, hearing intact, vision intact Neck: no JVD, supple Respiratory: Present: Decreased Breath Sounds Cardiology: S1S2 Gastrointestinal: normoactive bowel sounds Integumentary: warm and dry Neurologic: alert and oriented x3 Musculoskeletal: other (No edema) - Lab 01/27/22 06:01 01/27/22 06:01 Most recent lab results Calcium 8.4 mg/dL (8.4-10.2) 01/27/22 06:01 Medications & Allergies - Medications Allergies/Adverse Reactions: Allergies lisinopril Adverse Reaction (Verified 01/23/22 10:29) Swelling/Hives Penicillins Adverse Reaction (Verified 01/23/22 10:29) Swelling/Hives Home Medications: Home Medications Medication Instructions Recorded Confirmed Last Taken Type Gabapentin 100 mg PO Q8HR #90 cap 01/01/22 01/25/22 Unknown Rx Lidocain2.5%/Prilocai2.5% [Emla] 1 applic TP 3XW 01/01/22 01/25/22 Unknown History Lidocaine [Lidocaine Pain Relief] 1 patch TP DAILY 01/01/22 01/25/22 Unknown History NIFEdipine [Nifedipine ER] 60 mg PO BID 30 Days #60 01/01/22 01/25/22 Unknown Rx labetaloL [Labetalol 200mg TAB] 200 mg PO BID #60 01/01/22 01/25/22 Unknown Rx oxyCODONE /ACETAMINOPHEN [Percocet 1 tab PO BID #20 01/01/22 01/25/22 Unknown Rx 5/325] Active Medications: Generic Name Dose Route Start Last Admin Trade Name Freq PRN Reason Stop Dose Admin Acetaminophen 650 mg 01/23/22 17:33 Acetaminophen 325 Mg Tab PO Q4H PRN Pain MILD(1-3)/Fever >100.5/SHOEMAKER Albuterol 2.5 mg 01/23/22 17:33 Albuterol 2.5 Mg/3 Ml Nebu IH Q4HRT PRN Shortness Of Breath Gabapentin 100 mg 01/23/22 22:00 01/27/22 05:40 Gabapentin 100 Mg Cap PO 100 mg Q8HR KIMO Administration Hydromorphone HCl 0.5 mg 01/23/22 17:33 01/25/22 13:29 Hydromorphone 0.5 Mg/0.5 Ml Inj IV 0.5 mg Q3H PRN Administration Pain , Severe (7-10) Labetalol HCl 200 mg 01/23/22 22:00 01/27/22 08:51 Labetalol 200 Mg Tab PO 200 mg BID KIMO Administration Nifedipine 60 mg 01/23/22 22:00 01/27/22 08:51 Nifedipine Xl 60 Mg Tab PO 60 mg BID KIMO Administration Ondansetron HCl 4 mg 01/23/22 17:33 01/26/22 20:29 Ondansetron 4 Mg/2 Ml Inj IV 4 mg Q8H PRN Administration Nausea And Vomiting Oxycodone/Acetaminophen 1 tab 01/23/22 17:33 01/27/22 08:52 Oxycodone /Acetaminophen 5-325mg Tab PO 1 tab Q6H PRN Administration Pain, Moderate (4-6) Sodium Chloride 10 ml 01/23/22 22:00 01/26/22 22:06 Sodium Chloride 0.9% 10 Ml Flush Syringe IV 10 ml BID KIMO Administration Sodium Chloride 10 ml 01/23/22 17:33 Sodium Chloride 0.9% 10 Ml Flush Syringe IV PRN PRN LINE FLUSH
[2022-01-27] MEDS ORDERED: EPOETIN ALFA-EPBX 20,000 UNIT/1 ML VIAL IV PRN (11:03)
[2022-01-27] MEDS ORDERED: MAGNESIUM HYDROXIDE (MOM) ORAL LIQD UDC PO PRN (13:09)
[2022-01-27] MEDS ORDERED: ALUM-MAG HYDROXIDE-SIMETHICONE 200-200-20MG/5ML ORAL LIQD 30 ML PO ONE (14:00)
[2022-01-27] MEDS: HYDROmorphone 0.5 MG/0.5 ML INJ IV PRN ×2 (14:05→23:25)
[2022-01-27] MEDS: FAMOTIDINE 10 MG TAB PO SCH ×2 (14:11→21:39)
--- NOTE | 2022-01-27 21:09 | Progress Note ---
Assessment and Plan Assessment and plan: The patient is a 71 year old female with ESRD on HD, she was admitted on 01/20/2022 for abd pain. 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 She received HD shortly after admission for clearance and gentle volume overload which was tolerated well. Renal consult was requested for HD management while inpatient. Accelerated hypertension ESRD with missed HD Nephrology following hemodialysis per schedule Low back pain; Continue pain management, physical therapy occupational therapy Medical noncompliance; Strongly advised to comply with medications and diet Hyperkalemia; Corrected closely monitor electrolytes Volume overload; Due to ESRD, hemodialysis per schedule DVT prophylaxis; Physical therapy Closely monitor the patient and adjust the management as needed DC planning per case management SNF placement 01/24/2022. Patient's blood pressure is normotensive and much better controlled. We will continue hemodialysis per nephrology recommendations. Volume overload has resolved. Patient will be counseled on the importance of medical compliance prior to discharge. Anticipate discharge in a.m. 01/25/2022. Patient reports severe low back pain with inability to ambulate. Await MRI lumbar spine. Continue hemodialysis per nephrology recommendations 01/26/2022. Await MRI for low back pain. I discussed the case with the daughter yesterday who reports patient is unable to ambulate due to low back pain. Patient was unable to go to hemodialysis because of the back pain. Continue hemodialysis per nephrology recommendations. 01/27/2022; authorization for [place] placement when patient is stable PT recommended subacute rehab, DC planning per case management History Interval history: I seen and examined the patient at the bedside Patient's chart and medications reviewed No new events reported by the nursing Patient complains of back pain Vital signs noted Hospitalist Physical - Constitutional Vitals: Temp Pulse Resp BP Pulse Ox 98.3 F 41 L 20 139/67 100 01/27/22 15:54 01/27/22 15:54 01/27/22 15:54 01/27/22 15:54 01/27/22 15:54 General appearance: Present: no acute distress, well-nourished, obese - EENT Eyes: Present: PERRL, EOM intact - Neck Neck: Present: supple, normal ROM - Respiratory Respiratory effort: normal Respiratory: bilateral: diminished, negative: rales, rhonchi, wheezing - Cardiovascular Rhythm: regular Heart Sounds: Present: S1 & S2 - Extremities Extremities: no ischemia, No edema - Abdominal General gastrointestinal: soft, non-tender, non-distended, normal bowel sounds - Integumentary Integumentary: Present: clear, warm - Psychiatric Psychiatric: appropriate mood/affect, cooperative - Neurologic Neurologic: moves all extremities Results - Labs CBC & Chem 7: 01/27/22 06:01 01/27/22 06:01 Labs: Laboratory Last Values WBC 6.4 K/mm3 (4.5-11.0) 01/27/22 06:01 RBC 3.24 M/mm3 (3.65-5.03) L 01/27/22 06:01 Hgb 8.9 gm/dl (10.1-14.3) L 01/27/22 06:01 Hct 28.6 % (30.3-42.9) L 01/27/22 06:01 MCV 88 fl (79-97) 01/27/22 06:01 MCH 27 pg (28-32) L 01/27/22 06:01 MCHC 31 % (30-34) 01/27/22 06:01 RDW 18.6 % (13.2-15.2) H 01/27/22 06:01 Plt Count 389 K/mm3 (140-440) 01/27/22 06:01 Lymph % (Auto) 26.6 % (13.4-35.0) 01/27/22 06:01 [place] % (Auto) 14.4 % (0.0-7.3) H 01/27/22 06:01 Eos % (Auto) 4.7 % (0.0-4.3) H 01/27/22 06:01 Baso % (Auto) 1.1 % (0.0-1.8) 01/27/22 06:01 Lymph # (Auto) 1.7 K/mm3 (1.2-5.4) 01/27/22 06:01 [place] # (Auto) 0.9 K/mm3 (0.0-0.8) H 01/27/22 06:01 Eos # (Auto) 0.3 K/mm3 (0.0-0.4) 01/27/22 06:01 Baso # (Auto) 0.1 K/mm3 (0.0-0.1) 01/27/22 06:01 Seg Neutrophils % 53.2 % (40.0-70.0) 01/27/22 06:01 Seg Neutrophils # 3.4 K/mm3 (1.8-7.7) 01/27/22 06:01 Sodium 141 mmol/L (137-145) 01/27/22 06:01 Potassium 3.8 mmol/L (3.6-5.0) 01/27/22 06:01 Chloride 96.7 mmol/L (98-107) L 01/27/22 06:01 Carbon Dioxide 27 mmol/L (22-30) 01/27/22 06:01 Anion Gap 21 mmol/L 01/27/22 06:01 BUN 27 mg/dL (7-17) H 01/27/22 06:01 Creatinine 6.7 mg/dL (0.6-1.2) H 01/27/22 06:01 Estimated GFR 7 ml/min 01/27/22 06:01 BUN/Creatinine Ratio 4 % 01/27/22 06:01 Glucose 119 mg/dL (65-100) H 01/27/22 06:01 Calcium 8.4 mg/dL (8.4-10.2) 01/27/22 06:01 Total Bilirubin 0.40 mg/dL (0.1-1.2) 01/23/22 11:53 AST < 5 units/L (5-40) L 01/23/22 11:53 ALT < 5 units/L (7-56) L 01/23/22 11:53 Alkaline Phosphatase 107 units/L (35-129) 01/23/22 11:53 Total Protein 8.8 g/dL (6.3-8.2) H 01/23/22 11:53 Albumin 3.5 g/dL (3.9-5) L 01/23/22 11:53 Albumin/Globulin Ratio 0.7 % 01/23/22 11:53 Hepatitis A IgM Ab Non-reactive (NonReactive) 01/24/22 11:39 Hep Bs Antigen Non-reactive (Negative) 01/24/22 11:39 Hep B Core IgM Ab Non-reactive (NonReactive) 01/24/22 11:39 Hepatitis C Antibody Non-reactive (NonReactive) 01/24/22 11:39 Brown/IV: Voiding Method Bedpan Active Medications - Current Medications Current Medications: Generic Name Dose Route Start Last Admin Trade Name Freq PRN Reason Stop Dose Admin Acetaminophen 650 mg 01/23/22 17:33 Acetaminophen 325 Mg Tab PO Q4H PRN Pain MILD(1-3)/Fever >100.5/SHOEMAKER Albuterol 2.5 mg 01/23/22 17:33 Albuterol 2.5 Mg/3 Ml Nebu IH Q4HRT PRN Shortness Of Breath Epoetin Rangel-epbx 20,000 unit 01/27/22 11:03 Epoetin Rangel-Epbx 20,000 Unit/1 Ml Vial IV PASHA PRN hemodialysis Famotidine 10 mg 01/27/22 14:00 01/27/22 14:11 Famotidine 10 Mg Tab PO 10 mg BID KIMO Administration Gabapentin 100 mg 01/23/22 22:00 01/27/22 14:05 Gabapentin 100 Mg Cap PO 100 mg Q8HR KIMO Administration Hydromorphone HCl 0.5 mg 01/23/22 17:33 01/27/22 14:05 Hydromorphone 0.5 Mg/0.5 Ml Inj IV 0.5 mg Q3H PRN Administration Pain , Severe (7-10) Labetalol HCl 200 mg 01/23/22 22:00 01/27/22 14:15 Labetalol 200 Mg Tab PO Not Given BID KIMO Magnesium Hydroxide 30 ml 01/27/22 13:09 01/27/22 14:06 Magnesium Hydroxide (Mom) Oral Liqd Udc PO 30 ml Q4H PRN Administration Constipation Nifedipine 60 mg 01/23/22 22:00 01/27/22 14:14 Nifedipine Xl 60 Mg Tab PO Not Given BID KIMO Ondansetron HCl 4 mg 01/23/22 17:33 01/26/22 20:29 Ondansetron 4 Mg/2 Ml Inj IV 4 mg Q8H PRN Administration Nausea And Vomiting Oxycodone/Acetaminophen 1 tab 01/23/22 17:33 01/27/22 08:52 Oxycodone /Acetaminophen 5-325mg Tab PO 1 tab Q6H PRN Administration Pain, Moderate (4-6) Sodium Chloride 10 ml 01/23/22 22:00 01/27/22 14:15 Sodium Chloride 0.9% 10 Ml Flush Syringe IV 10 ml BID KIMO Administration Sodium Chloride 10 ml 01/23/22 17:33 Sodium Chloride 0.9% 10 Ml Flush Syringe IV PRN PRN LINE FLUSH
[2022-01-28] MEDS: GABAPENTIN 100 MG CAP PO SCH ×3 (05:43→21:10)
[2022-01-28 06:13] LABS: Calcium 8.2 mg/dL (8.4-10.2)
[2022-01-28] MEDS: NIFEdipine XL 60 MG TAB PO SCH ×2 (10:00→21:08)
[2022-01-28] MEDS: FAMOTIDINE 10 MG TAB PO SCH ×2 (10:00→21:08)
--- NOTE | 2022-01-28 10:20 | Progress Note ---
Assessment and Plan Assessment: Hypertensive emergency End stage renal disease on dialysis Noncompliance Acute hyperkalemia Volume overload Anemia Plan: HD today Anemia- Epogen 20,000 units with HD Fluid restriction of 1 liter per day Renally dose medications Strict I&O's daily Obtain daily weights Assess dialysis needs daily Case management arranging SNF placement for patient Consult case management for outpatient HD placement to [facility] Subjective Date of service: 01/28/22 Principal diagnosis: ESRD Interval history: HD today, NAD. Objective - Exam Narrative Exam: - General Appearance General appearance: well-developed, appears stated age, fatigue EENT: ATNC, PERRL, hearing intact, vision intact Neck: no JVD, supple Respiratory: Present: Decreased Breath Sounds Cardiology: S1S2 Gastrointestinal: normoactive bowel sounds Integumentary: warm and dry Neurologic: alert and oriented x3 Musculoskeletal: other (No edema) - Vital Signs Vital signs: Vital Signs - 12hr 01/28/22 04:12 Temperature 97.9 F Pulse Rate 61 Respiratory 16 Rate Blood Pressure 102/52 O2 Sat by Pulse 100 Oximetry - Lab 01/27/22 06:01 01/28/22 04:47 Most recent lab results Calcium 8.2 mg/dL (8.4-10.2) L 01/28/22 04:47 Medications & Allergies - Medications Allergies/Adverse Reactions: Allergies lisinopril Adverse Reaction (Verified 01/23/22 10:29) Swelling/Hives Penicillins Adverse Reaction (Verified 01/23/22 10:29) Swelling/Hives Home Medications: Home Medications Medication Instructions Recorded Confirmed Last Taken Type Gabapentin 100 mg PO Q8HR #90 cap 01/01/22 01/25/22 Unknown Rx Lidocain2.5%/Prilocai2.5% [Emla] 1 applic TP 3XW 01/01/22 01/25/22 Unknown History Lidocaine [Lidocaine Pain Relief] 1 patch TP DAILY 01/01/22 01/25/22 Unknown History NIFEdipine [Nifedipine ER] 60 mg PO BID 30 Days #60 01/01/22 01/25/22 Unknown Rx labetaloL [Labetalol 200mg TAB] 200 mg PO BID #60 01/01/22 01/25/22 Unknown Rx oxyCODONE /ACETAMINOPHEN [Percocet 1 tab PO BID #20 01/01/22 01/25/22 Unknown Rx 5/325] Active Medications: Generic Name Dose Route Start Last Admin Trade Name Freq PRN Reason Stop Dose Admin Acetaminophen 650 mg 01/23/22 17:33 Acetaminophen 325 Mg Tab PO Q4H PRN Pain MILD(1-3)/Fever >100.5/SHOEMAKER Albuterol 2.5 mg 01/23/22 17:33 Albuterol 2.5 Mg/3 Ml Nebu IH Q4HRT PRN Shortness Of Breath Epoetin Rangel-epbx 20,000 unit 01/27/22 11:03 01/28/22 09:42 Epoetin Rangel-Epbx 20,000 Unit/1 Ml Vial IV 20,000 unit PASHA PRN Administration hemodialysis Famotidine 10 mg 01/27/22 14:00 01/27/22 21:39 Famotidine 10 Mg Tab PO 10 mg BID KIMO Administration Gabapentin 100 mg 01/23/22 22:00 01/28/22 05:43 Gabapentin 100 Mg Cap PO 100 mg Q8HR KIMO Administration Hydromorphone HCl 0.5 mg 01/23/22 17:33 01/27/22 23:25 Hydromorphone 0.5 Mg/0.5 Ml Inj IV 0.5 mg Q3H PRN Administration Pain , Severe (7-10) Labetalol HCl 200 mg 01/23/22 22:00 01/27/22 21:39 Labetalol 200 Mg Tab PO 200 mg BID KIMO Administration Magnesium Hydroxide 30 ml 01/27/22 13:09 01/27/22 14:06 Magnesium Hydroxide (Mom) Oral Liqd Udc PO 30 ml Q4H PRN Administration Constipation Nifedipine 60 mg 01/23/22 22:00 01/27/22 21:39 Nifedipine Xl 60 Mg Tab PO 60 mg BID KIMO Administration Ondansetron HCl 4 mg 01/23/22 17:33 01/26/22 20:29 Ondansetron 4 Mg/2 Ml Inj IV 4 mg Q8H PRN Administration Nausea And Vomiting Oxycodone/Acetaminophen 1 tab 01/23/22 17:33 01/27/22 08:52 Oxycodone /Acetaminophen 5-325mg Tab PO 1 tab Q6H PRN Administration Pain, Moderate (4-6) Sodium Chloride 10 ml 01/23/22 22:00 01/27/22 21:40 Sodium Chloride 0.9% 10 Ml Flush Syringe IV 10 ml BID KIMO Administration Sodium Chloride 10 ml 01/23/22 17:33 Sodium Chloride 0.9% 10 Ml Flush Syringe IV PRN PRN LINE FLUSH
[2022-01-28] MEDS: HYDROmorphone 0.5 MG/0.5 ML INJ IV PRN ×2 (14:28→20:52)
--- NOTE | 2022-01-28 16:05 | Discharge Summary ---
Providers - Providers Date of Admission: 01/23/22 17:33 Date of discharge: 01/28/22 Attending physician: ALL JARVIS 01/23/22 17:33 Consult to Physician [CONS] Routine Comment: Consulting Provider: JAC KENT Physician Instructions: Reason For Exam: esrd 01/26/22 09:34 Physical Therapy Evaluation and Treat [CONS] Stat Comment: Eval and Treat Reason For Exam: Physical Therapy 01/26/22 10:02 Consult to Case Management [CONS] Routine Services Needed at Discharge: Other Notified:: cm Was contact made?: No Time called:: 12:27 Comment:: Place to [facility]. self consult. Additional Physician Instructions: Patient noted to be going to SNF once arranged. Please place patient at [facility] on [facility] [place] [address]. Primary care physician: MARINA SOTOMAYOR Hospitalization Reason for admission: Fluid overload, missed hemodialysis, hypertensive urgency Condition: Fair Pertinent studies: CT abdomen and pelvis; no urinary tract stones or hydronephrosis Fluid-filled nondilated small bowel and colon Interval improvement of small left pleural effusion MRI lumbar spine; multilevel degenerative changes and disc bulges involving the lumbar spine as detailed Hospital course: The patient is a 71 year old female with ESRD on HD, she was admitted on 01/20/2022 for abd pain. She was found to have to have HTN urgency with hyperkalemia after she missed the last 2 HD treatments [facility]. She received HD shortly after admission for clearance and gentle volume overload which was tolerated well. Renal consult was requested for HD management while inpatient. Accelerated hypertension ESRD with missed HD Nephrology following hemodialysis per schedule Low back pain; Continue pain management, physical therapy occupational therapy Medical noncompliance; Strongly advised to comply with hemodialysis Hyperkalemia; Corrected closely monitor electrolytes Volume overload; Due to ESRD, hemodialysis per schedule DVT prophylaxis; Physical therapy Closely monitor the patient and adjust the management as needed DC planning per case management SNF placement 01/24/2022. Patient's blood pressure is normotensive and much better controlled. We will continue hemodialysis per nephrology recommendations. Volume overload has resolved. Patient will be counseled on the importance of medical compliance prior to discharge. Anticipate discharge in a.m. 01/25/2022. Patient reports severe low back pain with inability to ambulate. Await MRI lumbar spine. Continue hemodialysis per nephrology recommendations 01/26/2022. Await MRI for low back pain. I discussed the case with the daughter yesterday who reports patient is unable to ambulate due to low back pain. Patient was unable to go to hemodialysis because of the back pain. Continue h emodialysis per nephrology recommendations. 01/27/2022; authorization for [place] placement when patient is stable PT recommended subacute rehab, DC planning per case management Disposition: 03 RETIREMENT [facility] Final Discharge Diagnosis (Prints w/discharge instructions): Accelerated hypertension. End-stage renal disease on hemodialysis. Noncompliance with dialysis. Low back pain. Hyperkalemia. Fluid overload. Obesity BMI 31 Time spent for discharge: 40 minutes Core Measure Documentation - Palliative Care Palliative Care/ Comfort Measures: Not Applicable - Core Measures Any of the following diagnoses?: none Exam - Constitutional Vitals: Temp Pulse Resp BP Pulse Ox 97.7 F 71 20 144/80 98 01/28/22 11:13 01/28/22 11:13 01/28/22 13:12 01/28/22 11:13 01/28/22 13:12 General appearance: Present: no acute distress, well-nourished - EENT Eyes: Present: PERRL, EOM intact - Neck Neck: Present: supple, normal ROM - Respiratory Respiratory effort: normal Respiratory: bilateral: diminished, negative: rales, rhonchi, wheezing - Cardiovascular Rhythm: regular Heart Sounds: Present: S1 & S2 - Extremities Extremities: no ischemia, No edema - Abdominal General gastrointestinal: Present: soft, non-tender, non-distended, normal bowel sounds - Integumentary Integumentary: Present: clear, warm - Musculoskeletal Musculoskeletal: strength equal bilaterally, generalized weakness - Psychiatric Psychiatric: appropriate mood/affect, agitated - Neurologic Neurologic: CNII-XII intact, moves all extremities Plan Activity: advance as tolerated, fall precautions Diet: renal Additional Instructions: Follow renal, hemodialysis per schedule. If you have worsening symptoms contact MD or go to the nearest emergency room as needed. Follow-up primary care physician in 1 week. Strongly advised to comply with medications diet follow-up visit Follow up with: JANINA CORNEJO MD [Referring] - 3-5 Days JAC KENT MD [Staff Physician] - 7 Days Prescriptions: oxyCODONE /ACETAMINOPHEN [Percocet 5/325 mg] 1 tab PO BID #20
--- NOTE | 2022-01-28 19:38 | Progress Note ---
Assessment and Plan Assessment and plan: The patient is a 71 year old female with ESRD on HD, she was admitted on 01/20/2022 for abd pain. She was found to have to have HTN urgency with hyperkalemia after she missed the last 2 HD treatments [facility]. She received HD shortly after admission for clearance and gentle volume overload which was tolerated well. Renal consult was requested for HD management while inpatient. Accelerated hypertension ESRD with missed HD Nephrology following hemodialysis per schedule Low back pain; Continue pain management, physical therapy occupational therapy Medical noncompliance; Strongly advised to comply with medications and diet Hyperkalemia; Corrected closely monitor electrolytes Volume overload; Due to ESRD, hemodialysis per schedule DVT prophylaxis; Physical therapy Closely monitor the patient and adjust the management as needed DC planning per case management SNF placement 01/24/2022. Patient's blood pressure is normotensive and much better controlled. We will continue hemodialysis per nephrology recommendations. Volume overload has resolved. Patient will be counseled on the importance of medical compliance prior to discharge. Anticipate discharge in a.m. 01/25/2022. Patient reports severe low back pain with inability to ambulate. Await MRI lumbar spine. Continue hemodialysis per nephrology recommendations 01/26/2022. Await MRI for low back pain. I discussed the case with the daughter yesterday who reports patient is unable to ambulate due to low back pain. Patient was unable to go to hemodialysis because of the back pain. Continue hemodialysis per nephrology recommendations. 01/27/2022; authorization for [place] placement when patient is stable PT recommended subacute rehab, DC planning per case management 01/28/2022; awaiting placement DC planning per case management History Interval history: Have seen and examined the patient at the bedside Patient's chart and medications reviewed Patient feels better received hemodialysis today Vital signs reviewed Hospitalist Physical - Constitutional Vitals: Temp Pulse Resp BP Pulse Ox 97.2 F L 73 20 149/71 98 01/28/22 12:25 01/28/22 12:25 01/28/22 13:12 01/28/22 12:25 01/28/22 13:12 General appearance: Present: no acute distress, well-nourished, obese - EENT Eyes: Present: PERRL, EOM intact - Neck Neck: Present: supple, normal ROM - Respiratory Respiratory effort: normal Respiratory: bilateral: diminished, negative: rales, rhonchi, wheezing - Cardiovascular Rhythm: regular Heart Sounds: Present: S1 & S2 - Extremities Extremities: no ischemia, No edema - Abdominal General gastrointestinal: soft, non-tender, non-distended, normal bowel sounds - Integumentary Integumentary: Present: clear, warm - Psychiatric Psychiatric: appropriate mood/affect, cooperative - Neurologic Neurologic: CNII-XII intact, moves all extremities Results - Labs CBC & Chem 7: 01/27/22 06:01 01/28/22 04:47 Labs: Laboratory Last Values WBC 6.4 K/mm3 (4.5-11.0) 01/27/22 06:01 RBC 3.24 M/mm3 (3.65-5.03) L 01/27/22 06:01 Hgb 8.9 gm/dl (10.1-14.3) L 01/27/22 06:01 Hct 28.6 % (30.3-42.9) L 01/27/22 06:01 MCV 88 fl (79-97) 01/27/22 06:01 MCH 27 pg (28-32) L 01/27/22 06:01 MCHC 31 % (30-34) 01/27/22 06:01 RDW 18.6 % (13.2-15.2) H 01/27/22 06:01 Plt Count 389 K/mm3 (140-440) 01/27/22 06:01 Lymph % (Auto) 26.6 % (13.4-35.0) 01/27/22 06:01 Cassia % (Auto) 14.4 % (0.0-7.3) H 01/27/22 06:01 Eos % (Auto) 4.7 % (0.0-4.3) H 01/27/22 06:01 Baso % (Auto) 1.1 % (0.0-1.8) 01/27/22 06:01 Lymph # (Auto) 1.7 K/mm3 (1.2-5.4) 01/27/22 06:01 Cassia # (Auto) 0.9 K/mm3 (0.0-0.8) H 01/27/22 06:01 Eos # (Auto) 0.3 K/mm3 (0.0-0.4) 01/27/22 06:01 Baso # (Auto) 0.1 K/mm3 (0.0-0.1) 01/27/22 06:01 Seg Neutrophils % 53.2 % (40.0-70.0) 01/27/22 06:01 Seg Neutrophils # 3.4 K/mm3 (1.8-7.7) 01/27/22 06:01 Sodium 138 mmol/L (137-145) 01/28/22 04:47 Potassium 4.4 mmol/L (3.6-5.0) 01/28/22 04:47 Chloride 94.7 mmol/L (98-107) L 01/28/22 04:47 Carbon Dioxide 26 mmol/L (22-30) 01/28/22 04:47 Anion Gap 22 mmol/L 01/28/22 04:47 BUN 40 mg/dL (7-17) H 01/28/22 04:47 Creatinine 8.4 mg/dL (0.6-1.2) H 01/28/22 04:47 Estimated GFR 6 ml/min 01/28/22 04:47 BUN/Creatinine Ratio 5 % 01/28/22 04:47 Glucose 142 mg/dL (65-100) H 01/28/22 04:47 Calcium 8.2 mg/dL (8.4-10.2) L 01/28/22 04:47 Total Bilirubin 0.40 mg/dL (0.1-1.2) 01/23/22 11:53 AST < 5 units/L (5-40) L 01/23/22 11:53 ALT < 5 units/L (7-56) L 01/23/22 11:53 Alkaline Phosphatase 107 units/L (35-129) 01/23/22 11:53 Total Protein 8.8 g/dL (6.3-8.2) H 01/23/22 11:53 Albumin 3.5 g/dL (3.9-5) L 01/23/22 11:53 Albumin/Globulin Ratio 0.7 % 01/23/22 11:53 Hepatitis A IgM Ab Non-reactive (NonReactive) 01/24/22 11:39 Hep Bs Antigen Non-reactive (Negative) 01/24/22 11:39 Hep B Core IgM Ab Non-reactive (NonReactive) 01/24/22 11:39 Hepatitis C Antibody Non-reactive (NonReactive) 01/24/22 11:39 Brown/IV: Voiding Method Bedpan Active Medications - Current Medications Current Medications: Generic Name Dose Route Start Last Admin Trade Name Freq PRN Reason Stop Dose Admin Acetaminophen 650 mg 01/23/22 17:33 Acetaminophen 325 Mg Tab PO Q4H PRN Pain MILD(1-3)/Fever >100.5/SHOEMAKER Albuterol 2.5 mg 01/23/22 17:33 Albuterol 2.5 Mg/3 Ml Nebu IH Q4HRT PRN Shortness Of Breath Epoetin Rangel-epbx 20,000 unit 01/27/22 11:03 01/28/22 09:42 Epoetin Rangel-Epbx 20,000 Unit/1 Ml Vial IV 20,000 unit PASHA PRN Administration hemodialysis Famotidine 10 mg 01/27/22 14:00 01/28/22 10:00 Famotidine 10 Mg Tab PO Not Given BID KIMO Gabapentin 100 mg 01/23/22 22:00 01/28/22 14:10 Gabapentin 100 Mg Cap PO 100 mg Q8HR KIMO Administration Hydromorphone HCl 0.5 mg 01/23/22 17:33 01/28/22 14:28 Hydromorphone 0.5 Mg/0.5 Ml Inj IV 0.5 mg Q3H PRN Administration Pain , Severe (7-10) Labetalol HCl 200 mg 01/23/22 22:00 01/28/22 10:00 Labetalol 200 Mg Tab PO Not Given BID KIMO Magnesium Hydroxide 30 ml 01/27/22 13:09 01/27/22 14:06 Magnesium Hydroxide (Mom) Oral Liqd Udc PO 30 ml Q4H PRN Administration Constipation Nifedipine 60 mg 01/23/22 22:00 01/28/22 10:00 Nifedipine Xl 60 Mg Tab PO Not Given BID KIMO Ondansetron HCl 4 mg 01/23/22 17:33 01/26/22 20:29 Ondansetron 4 Mg/2 Ml Inj IV 4 mg Q8H PRN Administration Nausea And Vomiting Oxycodone/Acetaminophen 1 tab 01/23/22 17:33 01/27/22 08:52 Oxycodone /Acetaminophen 5-325mg Tab PO 1 tab Q6H PRN Administration Pain, Moderate (4-6) Sodium Chloride 10 ml 01/23/22 22:00 01/28/22 10:00 Sodium Chloride 0.9% 10 Ml Flush Syringe IV Not Given BID KIMO Sodium Chloride 10 ml 01/23/22 17:33 Sodium Chloride 0.9% 10 Ml Flush Syringe IV PRN PRN LINE FLUSH
[2022-01-29] MEDS: GABAPENTIN 100 MG CAP PO SCH (06:15)
--- NOTE | 2022-01-29 08:16 | Progress Note ---
Assessment and Plan Hypertensive emergency End stage renal disease on dialysis Noncompliance Acute hyperkalemia Volume overload Anemia Plan: no indication for HD today Anemia- Epogen 20,000 units with HD Fluid restriction of 1 liter per day Renally dose medications Strict I&O's daily Obtain daily weights Assess dialysis needs daily Consult case management for outpatient HD placement to [facility] Subjective Date of service: 01/29/22 Principal diagnosis: ESRD Interval history: no overnight events, she is being discharged back to [facility] Objective - Vital Signs Vital signs: Vital Signs - 12hr 01/28/22 01/28/22 21:09 22:00 Pulse Rate 98 H Respiratory 20 Rate Blood Pressure 195/83 O2 Sat by Pulse 98 Oximetry - Lab 01/27/22 06:01 01/28/22 04:47 Most recent lab results Calcium 8.2 mg/dL (8.4-10.2) L 01/28/22 04:47 Medications & Allergies - Medications Allergies/Adverse Reactions: Allergies lisinopril Adverse Reaction (Verified 01/23/22 10:29) Swelling/Hives Penicillins Adverse Reaction (Verified 01/23/22 10:29) Swelling/Hives Home Medications: Home Medications Medication Instructions Recorded Confirmed Last Taken Type Gabapentin 100 mg PO Q8HR #90 cap 01/01/22 01/25/22 Unknown Rx Lidocain2.5%/Prilocai2.5% [Emla] 1 applic TP 3XW 01/01/22 01/25/22 Unknown History Lidocaine [Lidocaine Pain Relief] 1 patch TP DAILY 01/01/22 01/25/22 Unknown Hi story NIFEdipine [Nifedipine ER] 60 mg PO BID 30 Days #60 01/01/22 01/25/22 Unknown Rx labetaloL [Labetalol 200mg TAB] 200 mg PO BID #60 01/01/22 01/25/22 Unknown Rx ALBUTEROL NEB's [Proventil 0.083% 2.5 mg IH Q4HRT PRN nebu 01/28/22 Unknown Rx NEBS] Acetaminophen [Acetaminophen TAB] 650 mg PO Q4H PRN tablet 01/28/22 Unknown Rx Epoetin Rangel-Epbx 20,000 [Retacrit] 20,000 unit IV PASHA PRN vial 01/28/22 Unknown Rx Famotidine [Pepcid] 10 mg PO BID tablet 01/28/22 Unknown Rx Magnesium Hydroxide [Milk of 30 ml PO Q4H PRN oral.liqd 01/28/22 Unknown Rx Magnesia] oxyCODONE /ACETAMINOPHEN [Percocet 1 tab PO BID #20 01/28/22 Unknown Rx 5/325 mg] Active Medications: Generic Name Dose Route Start Last Admin Trade Name Freq PRN Reason Stop Dose Admin Acetaminophen 650 mg 01/23/22 17:33 Acetaminophen 325 Mg Tab PO Q4H PRN Pain MILD(1-3)/Fever >100.5/SHOEMAKER Albuterol 2.5 mg 01/23/22 17:33 Albuterol 2.5 Mg/3 Ml Nebu IH Q4HRT PRN Shortness Of Breath Epoetin Rangel-epbx 20,000 unit 01/27/22 11:03 01/28/22 09:42 Epoetin Rangel-Epbx 20,000 Unit/1 Ml Vial IV 20,000 unit PASHA PRN Administration hemodialysis Famotidine 10 mg 01/27/22 14:00 01/28/22 21:08 Famotidine 10 Mg Tab PO 10 mg BID KIMO Administration Gabapentin 100 mg 01/23/22 22:00 01/29/22 06:15 Gabapentin 100 Mg Cap PO 100 mg Q8HR KIMO Administration Hydromorphone HCl 0.5 mg 01/23/22 17:33 01/28/22 20:52 Hydromorphone 0.5 Mg/0.5 Ml Inj IV 0.5 mg Q3H PRN Administration Pain , Severe (7-10) Labetalol HCl 200 mg 01/23/22 22:00 01/28/22 21:09 Labetalol 200 Mg Tab PO 200 mg BID KIMO Administration Magnesium Hydroxide 30 ml 01/27/22 13:09 01/27/22 14:06 Magnesium Hydroxide (Mom) Oral Liqd Udc PO 30 ml Q4H PRN Administration Constipation Nifedipine 60 mg 01/23/22 22:00 01/28/22 21:08 Nifedipine Xl 60 Mg Tab PO 60 mg BID KIMO Administration Ondansetron HCl 4 mg 01/23/22 17:33 01/26/22 20:29 Ondansetron 4 Mg/2 Ml Inj IV 4 mg Q8H PRN Administration Nausea And Vomiting Oxycodone/Acetaminophen 1 tab 01/23/22 17:33 01/27/22 08:52 Oxycodone /Acetaminophen 5-325mg Tab PO 1 tab Q6H PRN Administration Pain, Moderate (4-6) Sodium Chloride 10 ml 01/23/22 22:00 01/28/22 21:10 Sodium Chloride 0.9% 10 Ml Flush Syringe IV 10 ml BID KIMO Administration Sodium Chloride 10 ml 01/23/22 17:33 Sodium Chloride 0.9% 10 Ml Flush Syringe IV PRN PRN LINE FLUSH
[2022-01-29] MEDS: NIFEdipine XL 60 MG TAB PO SCH (09:20)
[2022-01-29 09:21] VITALS: BP 128/57
[2022-01-29] MEDS: FAMOTIDINE 10 MG TAB PO SCH (09:21)
== END 2022-01-29 11:42 | DRG 640 ==
LOC: ED 10:20 → 3A 17:33
PROVIDERS: ADMIT Internal Medicine; ATTEND Internal Medicine
PROC: 5A1D70Z Performance of Urinary Filtration, Intermittent, Less than 6 Hours Per Day (ICD-10-PCS; principal; 2022-01-23)
PROC: 5A1D70Z Performance of Urinary Filtration, Intermittent, Less than 6 Hours Per Day (ICD-10-PCS; 2022-01-24)
PROC: 5A1D70Z Performance of Urinary Filtration, Intermittent, Less than 6 Hours Per Day (ICD-10-PCS; 2022-01-26)
PROC: 5A1D70Z Performance of Urinary Filtration, Intermittent, Less than 6 Hours Per Day (ICD-10-PCS; 2022-01-28)
DX: E87.5 Hyperkalemia (principal); N18.6 End stage renal disease; I16.1 Hypertensive emergency; I12.0 Hypertensive chronic kidney disease with stage 5 chronic kidney disease or end stage renal disease; E87.70 Fluid overload, unspecified; K21.9 Gastro-esophageal reflux disease without esophagitis; M19.90 Unspecified osteoarthritis, unspecified site; Z20.822 Contact with and (suspected) exposure to COVID-19; Z68.31 Body mass index [BMI] 31.0-31.9, adult; E66.9 Obesity, unspecified; G89.4 Chronic pain syndrome; Z91.19 Patient's noncompliance with other medical treatment and regimen; D64.9 Anemia, unspecified; M54.50 Low back pain, unspecified; Z82.49 Family history of ischemic heart disease and other diseases of the circulatory system; Z83.3 Family history of diabetes mellitus; Z88.8 Allergy status to other drugs, medicaments and biological substances; Z88.0 Allergy status to penicillin; Z90.710 Acquired absence of both cervix and uterus
CPT/HCPCS: 36415; 72148; 74176; 80048; 80053; 80074; 85025; 93005; 94640; G0378; J3490; Q9967; J0610; J0885; J1815; J2270; J2405; U0003